=== PATIENT | female | born 1945 | race African-American/Black ===

== ENCOUNTER 2019-08-15 01:07 | Emergency (ER) | payer MEDICARE ==
[~2019-08-15] VITALS: Ht 162.6 cm; Wt 54.0 kg
[2019-08-15 01:37] VITALS: BP 170/96
[2019-08-15] MEDS ORDERED: HYDROCODONE/ACETAMINOPHEN 10/325MG TABLET PO ONE (02:15)
== END 2019-08-15 02:39 | disposition home or self-care (01) ==
LOC: ER 01:07
DX: K40.90 Unilateral inguinal hernia, without obstruction or gangrene, not specified as recurrent (principal); I10 Essential (primary) hypertension; Z86.73 Personal history of transient ischemic attack (TIA), and cerebral infarction without residual deficits
CPT/HCPCS: 99283